=== PATIENT | male | born 1975 | race Caucasian/White ===

== ENCOUNTER 2016-11-18 22:23 | Emergency (ER) | payer OTHER, MEDICAID ==
[~2016-11-18] VITALS: Ht 167.6 cm; Wt 68.0 kg
[~2016-11-18 22:23] MED LIST: AMOXICILLIN; HYDR-1189 PO; KEFLEX; KEPPRA; LEVE1000 PO; LEVE750T4; NAPR-238; NAPR60CR2; TYLL650; XANAX; [UNRECOGNIZED DRUG - OTHER]
[2016-11-18 22:59] VITALS: BP 129/89; PULSE 88; RESP 16; TEMP 98.4; O2SAT 99
--- NOTE | 2016-11-18 23:52 | NUR ---
Patient to ER bed 07 to gown for evaluation. Side rails up. Report given to Leanne.
--- NOTE | 2016-11-19 | NUR ---
PT IN BED 7 WITH C/O ANKLE PAIN , DR Siddiqui AWARE.
--- NOTE | 2016-11-19 00:22 | NUR ---
ER at bedside examining patient.
[2016-11-19 01:22] VITALS: BP 129/78; PULSE 80; RESP 16; TEMP 98.4; O2SAT 99
--- NOTE | 2016-11-19 01:23 | NUR ---
Patient given written and verbal discharge instructions and verbalizes understanding. ER MD discussed with patient the results and treatment provided. Given copies of tests performed in ER. Patient in stable condition. ID arm band removed. NO Rx given. Patient educated on pain management and to follow up with PMD. Pain Scale 0/10. Opportunity for questions provided and answered.
== END 2016-11-19 01:22 | disposition home or self-care (01) ==
LOC: SED 22:23
DX: M25.571 Pain in right ankle and joints of right foot (principal)
CPT/HCPCS: 99284

== ENCOUNTER 2017-01-10 19:16 | Emergency (ER) | payer OTHER, MEDICAID ==
[~2017-01-10] VITALS: Ht 167.6 cm; Wt 65.8 kg
[2017-01-10 19:23] VITALS: BP 118/82; PULSE 84; RESP 16; TEMP 97.8; O2SAT 99
--- NOTE | 2017-01-10 19:40 | NUR ---
Placed in room 6 . Placed on personnel monitor, blood pressure machine and pulse oximeter. To gown for exam. Side rails up.
--- NOTE | 2017-01-10 19:50 | NUR ---
Pt presents to ED with c/o right thumb pain for x3 months, denies injury, denies numbness/ tingling. Pt stated he wants evaluation and check-up at the ED today. Skin intact, A&Ox4. Will continue to monitor
--- NOTE | 2017-01-10 19:50 | NUR ---
Brooke godwin in ED - 01/10/17 at 2042 by [email or web address] MD Vines at bedside examining pt
--- NOTE | 2017-01-10 19:52 | NUR ---
MD Vines at bedside examining pt
[2017-01-10 21:00] VITALS: BP 116/78; PULSE 81; RESP 16; TEMP 97.8; O2SAT 98
--- NOTE | 2017-01-10 21:00 | NUR ---
Patient given written and verbal discharge instructions and verbalizes understanding. ER MD Vines discussed with patient the results and treatment provided. Patient in stable condition. ID arm band removed. Rx of motrin given. Patient educated on pain management and to follow up with PMD. Pain Scale 0/10 Opportunity for questions provided and answered.
== END 2017-01-10 21:00 | disposition home or self-care (01) ==
LOC: SED 19:16
DX: S63.91XA Sprain of unspecified part of right wrist and hand, initial encounter (principal); Z88.6 Allergy status to analgesic agent; X58.XXXA Exposure to other specified factors, initial encounter; Y93.89 Activity, other specified; Y99.8 Other external cause status; Y92.89 Other specified places as the place of occurrence of the external cause
CPT/HCPCS: 99284

== ENCOUNTER 2017-10-10 06:47 | Day surgery (SDC) | payer OTHER, MEDICAID ==
[2017-10-06 13:04] LABS: BASOPHILS % (AUTO) 0.9 % (0.0-2.0); EOSINOPHILS # (AUTO) 0.1 K/uL (0.0-0.4); EOSINOPHILS % (AUTO) 1.3 % (0.0-4.0); HEMATOCRIT 44.3 % (36-54); HEMOGLOBIN 14.6 g/dL (14.0-18.0); LYMPHOCYTES # (AUTO) 1.7 K/uL (1.0-5.5); MEAN CORPUSCULAR HEMOGLOBIN 30 pg (27-31); MEAN CORPUSCULAR HGB CONC 33 % (32-36); MEAN CORPUSCULAR VOLUME 90 fL (79.0-98.0); MONOCYTES # (AUTO) 0.4 K/uL (0.0-1.0); MONOCYTES % (AUTO) 7.6 % (1.7-9.3); NEUTROPHILS # (AUTO) 2.9 K/uL (1.8-7.7); NEUTROPHILS % (AUTO) 57.2 % (40.0-70.0); PLATELET COUNT (AUTO) 264 K/uL (130-430); RED BLOOD CELL COUNT(AUTO) 4.94 MIL/uL (4.2-6.2); WHITE BLOOD COUNT (AUTO) 5.1 K/uL (4.8-10.8)
[2017-10-06 13:26] LABS: ALBUMIN 4.2 g/dL (3.4-4.8); CALCIUM 9.4 mg/dL (8.4-11.0); CREATININE 0.84 mg/dL (0.55-1.30); POTASSIUM 4.1 mmol/L (3.5-5.1); TOTAL BILIRUBIN 0.6 mg/dL (0.0-1.0)
[2017-10-06 13:27] LABS: PROTHROMBIN TIME 10.1 SECS (9.5-12.5)
[2017-10-06 13:38] LABS: BILIRUBIN,URINE NEGATIVE (NEGATIVE); BLOOD, URINE 1+ (NEGATIVE); CLARITY/URINE SL HAZY (CLEAR); COLOR,URINE YELLOW (YELLOW); GLUCOSE,URINE NEGATIVE (NEGATIVE); KETONES,URINE NEGATIVE (NEGATIVE); LEUKOCYTE ESTERASE ,URINE NEGATIVE (NEGATIVE); NITRITE, URINE NEGATIVE (NEGATIVE); PH,URINE 6.5 (5.0-8.0); PROTEIN URINE NEGATIVE (NEGATIVE); UROBILINOGEN,URINE 0.2 (0.2-1.0)
[2017-10-06 13:47] LABS: BACTERIA,URINE RARE /HPF (None Seen); WBC,URINE NONE SEEN /HPF (0-3)
[~2017-10-10] VITALS: Ht 167.6 cm; Wt 65.3 kg
[~2017-10-10 06:47] MED LIST changes: -AMOXICILLIN; -KEFLEX; -KEPPRA; -LEVE750T4; -NAPR-238; -NAPR60CR2; -TYLL650; -XANAX; -[UNRECOGNIZED DRUG - OTHER]
[2017-10-10] MEDS ORDERED: CEFAZOLIN 1 GM IVPB PREMIX 50 ML IV ONE (07:00)
[2017-10-10] MEDS ORDERED: ONDANSETRON HCL 4 MG/2 ML VIAL IVP PRN ×2 (09:45→10:00)
[2017-10-10] MEDS ORDERED: ACETAMINOPHEN 500 MG TABLET PO PRN (09:45)
[2017-10-10] MEDS ORDERED: ACETAMINOPHEN/CODEINE 300 MG-30 MG TABLET PO PRN (09:45)
[2017-10-10] MEDS ORDERED: PROPOFOL 200MG/ 20ML VIAL (DIPRIVAN) IV ONE (09:55)
[2017-10-10] MEDS ORDERED: MIDAZOLAM HCL 5 MG/ML VIAL (VERSED) IV ONE (09:55)
[2017-10-10] MEDS ORDERED: SEVOFLURANE 15 MIN GAS INH ONE (09:55)
[2017-10-10] MEDS ORDERED: OXYMETAZOLINE HCL 0.05% NASAL SPRAY NS ONE (09:55)
[2017-10-10] MEDS ORDERED: DEXAMETHASONE SOD PHOSPHATE 4 MG/ML VIAL IVP ONE (09:55)
[2017-10-10] MEDS ORDERED: BACITRACIN ZINC 15 GM TOPICAL OINTMENT TP ONE (09:55)
[2017-10-10] MEDS ORDERED: fentaNYL CITRATE/PF 100 MCG/2 ML AMP IVP ONE (09:55)
[2017-10-10] MEDS ORDERED: ROCURONIUM BROMIDE 10 MG/ML (ZEMURON) IV ONE (09:55)
[2017-10-10] MEDS ORDERED: LR 1,000 ML IV.SOLN IV ONE (09:55)
[2017-10-10] MEDS ORDERED: ONDANSETRON HCL 4 MG/2 ML VIAL IVP ONE (09:55)
[2017-10-10] MEDS ORDERED: levETIRAcetam 500 MG TABLET PO ONE (10:00)
[2017-10-10] MEDS ORDERED: fentaNYL CITRATE/PF 100 MCG/2 ML AMP IVP PRN ×2 (10:00)
[2017-10-10] MEDS ORDERED: OXcarbazepine 150 MG TABLET(TRILEPTAL) PO ONE (10:00)
[2017-10-10] MEDS ORDERED: MEPERIDINE HCL/PF 25 MG/ML DISP.SYRIN IVP ONE (10:05)
[2017-10-10] MEDS ORDERED: MEPERIDINE HCL/PF 25 MG/ML DISP.SYRIN ONE (10:08)
[2017-10-10] MEDS ORDERED: MEPERIDINE HCL/PF 25 MG/ML DISP.SYRIN IVP PRN (10:15)
[2017-10-10 10:53] VITALS: BP_SYST 106
== END 2017-10-10 12:40 | disposition home or self-care (01) ==
LOC: SDS 06:47 → SMU 07:22 → SDS 12:40
PROVIDERS: ATTEND Otolaryngology
DX: J34.2 Deviated nasal septum (principal); J31.0 Chronic rhinitis; R56.9 Unspecified convulsions; Z79.899 Other long term (current) drug therapy
CPT/HCPCS: 30140; 30520; 36415; 80053; 81000; 85025; 85576; 85610; 85730; 88305; 88311; J0690; J1100; J2175; J2250; J2405; J2704; J3010; J7120

== ENCOUNTER 2018-12-29 21:58 | Emergency (ER) | payer MEDICAID, OTHER ==
[~2018-12-29] VITALS: Ht 167.6 cm; Wt 64.9 kg
[2018-12-29 22:02] VITALS: BP_SYST 120
[2018-12-29] MEDS ORDERED: NITROGLYCERIN 0.4 MG TAB.SUBL SL ONE (23:15)
[2018-12-29 23:37] LABS: BASOPHILS # (AUTO) 0.1 K/uL (0.0-0.2); BASOPHILS % (AUTO) 0.9 % (0.0-2.0); EOSINOPHILS # (AUTO) 0.1 K/uL (0.0-0.4); EOSINOPHILS % (AUTO) 1.3 % (0.0-4.0); HEMATOCRIT 40.9 % (36-54); MEAN CORPUSCULAR HEMOGLOBIN 30 pg (27-31); MEAN CORPUSCULAR HGB CONC 34 % (32-36); MEAN CORPUSCULAR VOLUME 88 fL (79.0-98.0); MONOCYTES # (AUTO) 0.6 K/uL (0.0-1.0); MONOCYTES % (AUTO) 9.9 % (1.7-9.3); NEUTROPHILS # (AUTO) 3.4 K/uL (1.8-7.7); NEUTROPHILS % (AUTO) 54.9 % (40.0-70.0); PLATELET COUNT (AUTO) 235 K/uL (130-430); RED BLOOD CELL COUNT(AUTO) 4.66 MIL/uL (4.2-6.2); RED CELL DISTRIBUTION WIDTH 13.3 % (9.0-15.0); WHITE BLOOD COUNT (AUTO) 6.2 K/uL (4.8-10.8)
[2018-12-29 23:49] LABS: CALCIUM 9.2 mg/dL (8.4-11.0); CREATININE 0.91 mg/dL (0.55-1.30); POTASSIUM 3.7 mmol/L (3.5-5.1)
[2018-12-29 23:52] LABS: INR 0.9 (0.80-1.20); PROTHROMBIN TIME 9.7 SECS (9.5-12.5)
[2018-12-29 23:55] LABS: ALBUMIN 3.6 g/dL (3.4-4.8); TOTAL BILIRUBIN 0.4 mg/dL (0.0-1.0)
[2018-12-30] MEDS ORDERED: ACETAMINOPHEN 325 MG TABLET PO ONE (01:45)
[2018-12-30 02:11] VITALS: BP_SYST 120
== END 2018-12-30 02:11 | disposition home or self-care (01) ==
LOC: SED 21:58
DX: R07.89 Other chest pain (principal); Z88.6 Allergy status to analgesic agent; Z79.899 Other long term (current) drug therapy
CPT/HCPCS: 36415; 71045; 80053; 83880; 84484; 85025; 85610-TC; 85730-TC; 93005; 99284